=== PATIENT | male | born 1960 ===

== ENCOUNTER 2021-02-08 08:06 | Emergency (ER) | payer OTHER, SELFPAY ==
[2021-02-08 08:10] VITALS: BP 141/79; PULSE 60; RESP 18; TEMP 35.7; O2SAT 97; BMI 27.9
--- NOTE | 2021-02-08 08:54 | ED_ITS ---
HPI - General Adult General Chief complaint: General Medical Stated complaint: SOB Time Seen by Provider: 02/08/21 08:21 Source: patient Mode of arrival: ambulatory Limitations: no limitations History of Present Illness HPI narrative: 60-year-old male who presents emergency department for evaluation of shortness of breath. The patient states he has had intermittent shortness of breath over a year. He states that over the past 3-4 days and shortness of breath is gotten worse. He states that seems to be worse at night. He has a cough which is occasionally productive. He complains of tightness in his chest. He points to his mid sternum and states that the tightness is moderate intensity is worse with breathing worse with movement. He denied fever, chills, myalgias, arthralgias. He states that he had asthma as a child but this got better. He states he has been treated in the past with prednisone and albuterol inhaler when he has had the symptoms and this has helped. The patient received the [employer] 19 vaccination with the 2nd dose given in December 2020. Related Data Previous Rx's Medication Instructions Recorded albuterol sulfate 90 mcg/actuation 2 puff INHALATION Q4-6H PRN #8.5 g 02/08/21 aerosol inhaler prednisone 20 mg tablet 60 mg PO DAILY 5 Days #15 tab 02/08/21 Allergies Allergy/AdvReac Type Severity Reaction Status Date / Time No Known Allergies Allergy Unverified 03/17/20 15:38 Review of Systems Review of Systems: Yes all other systems are reviewed and are negative PMFSH Past Medical History [facility] Narrative: Social history: The patient denies tobacco use. The patient denies alcohol use. The patient states he does smoke marijuana frequently to help with his spinal stenosis pain. Medical History Arthritis Asthma Presence of other bone and tendon implants Spinal stenosis Surgical History Previous back surgery Social History Social History Advance Directives: No Advance Directives Information Provided: No Physical Exam Vital Signs: Vital Signs: Last Vital Signs Temp 96.3 F L 02/08/21 08:10 Pulse 60 02/08/21 08:10 Resp 18 02/08/21 08:10 BP 141/79 H 02/08/21 08:10 Pulse Ox 97 02/08/21 08:10 Body Mass Index 27.9 Const: General: cooperative and no acute distress Orientation/consciousness: oriented to person and oriented to place Limitations: no limitations HENMT: Head: Yes normal to inspection, Yes normocephalic and Yes atraumatic Ears: external ears normal General nose exam: Normal external nose present Face and sinus: Yes normal facial exam Mouth: Normal oral and palatal mucosa present Throat: Yes posterior oropharynx normal Eyes: General: appearance normal, both eyes and all related structures Pupils: Equal, round and reactive pupils present Neck: Neck: Yes normal visual inspection, Yes no lymphadenopathy, Yes trachea midline and Yes supple Chest: Chest palpation & inspection: normal inspection of the chest and normal palpation of entire chest wall Resp: Effort & Inspection: normal respiratory effort and able to speak in complete sentences Auscultation: wheezes scattered wheezes Cardio: Rate: regular rate Rhythm: regular rhythm Heart sounds: S1 normal heart sound present, S2 normal heart sound present and no murmurs GI: Inspection: Yes normal to inspection Palpation (GI): Soft to palpation, nontender and no guarding Auscultation: normal bowel sounds : General: Yes no CVA tenderness Back/Spine/Pelvis: Back: no CVA tenderness Skin: General skin exam: no rashes or lesions noted Neuro: General: oriented to person and oriented to place Cranial nerves: Yes CN's II-XII intact bilaterally and Yes Equal, round and reactive pupils present Cognition (Neuro): normal cognition Motor exam (neuro): 5/5 motor strength present throughout Extrem: General: Yes normal to inspection Psych: Appearance: grossly normal Speech and movement: Normal speech and movement present Affect: normal affect Attitude: cooperative Thought process: Normal thought process present Thought content: Normal thought content present Course Course Course Narrative: 60-year-old male who presents emergency department for evaluation of shortness of breath and a nonproductive cough. Vital signs revealed an elevated blood pressure of 141/79 and a low temperature of 96.3? F. Physical examination did reveal diffuse wheezing otherwise was unremarkable. The patient was started on prednisone 60 mg once a day for 5 days and albuterol inhaler 2 puffs every 4 hours as needed for shortness of breath and wheezing. The patient was discharged home. The patient was given verbal and printed instructions prior to discharge. The patient was advised to follow-up with his PCP in 2 days and to return to the emergency department if his symptoms get worse or if he develops any new symptoms that are concerning to him. Discharge Plan Discharge Clinical Impression: Asthma exacerbation Qualifiers: Asthma severity: moderate Patient Disposition: Home, Self-Care Instructions: Asthma (ED) Additional Instructions: Take prednisone 20 mg pills, 3 pills once a day for 5 days. While you are taking prednisone, do not take any NSAIDs (Motrin, Advil, ibuprofen, Aleve, naproxen). Use the albuterol inhaler 2 puffs every 4 hours as needed for shortness of breath. I want you to use this at least 4 times a day for the next 2-3 days to treat your wheezing then you can use as needed. Smoking marijuana may be contributing to your wheezing, you should consider changing to an edible marijuana product to help with your pain in appetite. Follow-up with your doctor in 2 days. Please return to the emergency department if your symptoms get worse or if you develop any symptoms that are concerning to you. Prescriptions: New albuterol sulfate 90 mcg/actuation HFA aerosol inhaler 2 puff inhalation Q4-6H PRN (Reason: shortness of breath or wheezing) Qty: 8.5 RF: 0 prednisone 20 mg tablet 60 mg PO DAILY 5 Days Qty: 15 RF: 0
== END 2021-02-08 09:26 | disposition home or self-care (01) ==
PROVIDERS: Emergency Provider Emergency Medicine Emergency Medical Services
DX: J45.901 Unspecified asthma with (acute) exacerbation (principal); F12.90 Cannabis use, unspecified, uncomplicated
CPT/HCPCS: 99283

== ENCOUNTER 2021-04-13 06:46 | Emergency (ER) | payer OTHER, SELFPAY ==
[2021-04-13 07:35] VITALS: BP 119/57; PULSE 61; TEMP 36.8; O2SAT 97
--- NOTE | 2021-04-13 07:41 | ECG_ITS ---
Test Reason : WEAKNESS Blood Pressure : / mmHG Vent. Rate : 064 BPM Atrial Rate : 064 BPM P-R Int : 190 ms QRS Dur : 076 ms QT Int : 398 ms P-R-T Axes : 041 -15 034 degrees QTc Int : 410 ms Sinus bradycardia with occasional Premature ventricular complexes Nonspecific ST abnormality Abnormal ECG No previous ECGs available Referred By: Maria Dolores Felton Electronically Signed By:NICOLA STONE MD
--- NOTE | 2021-04-13 07:42 | ED_ITS ---
HPI - General Adult General Chief complaint: General Medical Stated complaint: blood in urine Time Seen by Provider: 04/13/21 07:35 Source: patient Mode of arrival: ambulatory Limitations: no limitations History of Present Illness HPI narrative: Patient comes to the emergency room complaining of microscopic hematuria for 4 years. Patient states that he has had multiple cystoscopies. Patient has an appointment coming up in May of 2021. Patient states that he thinks he is anemic, states that he has been feeling very weak, lightheaded, denies chest pain or shortness of breath. Patient denies falling, but has had multiple episodes where he needs to sit down to avoid passing out. Related Data Home Medications Medication Instructions Recorded Confirmed atorvastatin 10 mg tablet 1 tab PO BEDTIME 04/13/21 04/13/21 gabapentin 300 mg capsule 1 cap PO TID 04/13/21 04/13/21 levocetirizine 5 mg tablet 1 tab PO DAILY PRN 04/13/21 04/13/21 lisinopril 10 mg tablet 1 tab PO DAILY 04/13/21 04/13/21 omeprazole 20 mg capsule,delayed 1 cap PO DAILY 04/13/21 04/13/21 release tamsulosin 0.4 mg capsule 1 cap PO DAILY 04/13/21 04/13/21 trazodone 50 mg tablet 100 mg PO BEDTIME 04/13/21 04/13/21 Previous Rx's Medication Instructions Recorded albuterol sulfate 90 mcg/actuation 2 puff INHALATION Q4-6H PRN #8.5 g 02/08/21 aerosol inhaler Allergies Allergy/AdvReac Type Severity Reaction Status Date / Time No Known Allergies Allergy Unverified 03/17/20 15:38 Review of Systems Review of Systems: Constitutional : No Weight loss, No Fever, No Chills, No Night Sweats, No Fatigue, No Malaise, complaining of generalized weakness ENT/Mouth : No Hearing loss, No Ear Pain, No Nasal Congestion, No Sinus Pain, No Hoarseness, No sore throat, No Rhinorrhea, No Swallowing Difficulty Eyes: No Eye Pain, No Swelling, No Redness, No Foreign Body, No Discharge, No Vision Changes Cardiovascular : No Chest Pain, No SOB, No Dyspnea on Exertion, No Orthopnea, No Edema, No Palpitations Respiratory : No Cough, No Sputum, No Wheezing, No Smoke Exposure, No Dyspnea Gastrointestinal : No Nausea, No Vomiting, No Diarrhea, No Constipation, No abdominal Pain, No Hematochezia, No Melena Genitourinary : No Dysuria, No Urinary Frequency, complaining of chronic painless microscopic Hematuria, No Urinary Incontinence, No Urgency, No Flank Pain, No Urinary Flow Changes, No Hesitancy Musculoskeletal : Complaining of chronic pain especially in hands No Myalgias, No Joint Swelling Skin : No Skin Lesions, No rash Neuro : No Weakness, No Numbness, No Paresthesias, No Loss of Consciousness, No Dizziness, No Headache Psych : No Anxiety/Panic, No Depression, No SI/HI/AH/VH, No Social Issues, Heme/Lymph: No Bruising, No Bleeding,No Lymphadenopathy Endocrine : No Polyuria, No Polydipsia, No Temperature Intolerance PMFSH Past Medical History Medical History Arthritis Asthma Presence of other bone and tendon implants Spinal stenosis Surgical History Previous back surgery Social History Social History Advance Directives: No Advance Directives Information Provided: Yes Physical Exam Vital Signs: Vital Signs: Last Vital Signs Temp 97.9 F 04/13/21 09:47 Pulse 66 04/13/21 09:47 Resp 16 04/13/21 09:47 BP 127/76 04/13/21 09:47 Pulse Ox 97 04/13/21 09:47 Body Mass Index 27.6 Const: Other: Appearance: Alert. Oriented X3. No acute distress. Eyes: Pupils equal, round and reactive to light. ENT: Pharynx normal. Neck: Normal inspection. Neck supple. No lymph nodes noted. No crepitus CVS: Normal heart rate and rhythm. Pulses normal. Normal S1 and S2 Respiratory: No respiratory distress. Breath sounds normal. No Wheezing. No ra les Abdomen: Soft and nontender. No rigidity. No distention. good BS x4 Skin: Skin warm and dry. Normal skin color. Normal skin turgor. Extremities: No lower extremity edema. No Lacerations. No Rash Neuro: Oriented X 3. No motor deficit. No sensory deficit. Moving all extermities. No slurred speech. Course Course Course Narrative: Despite having microscopic hematuria for several years, smith mansfield is not significantly anemic. Patient will follow-up as scheduled with his urologist, as mentioned above patient has a cystoscopy scheduled for May. Also, patient will benefit from the rheumatology consult for his chronic joint pain/arthritis Medical Decision Making Lab Data Result diagrams: 04/13/21 08:14 04/13/21 08:14 Labs: Lab Results 04/13/21 04/13/21 04/13/21 Range/Units 08:13 08:14 08:14 WBC 6.4 (4.8-10.8) X10*3/uL RBC 3.88 L (4.60-5.80) X10*6/uL Hgb 12.8 L (14.0-18.0) g/dl Hct 36.1 L (42-52) % MCV 93.0 (80-98) fL MCH 33.0 (27.0-33.0) pg MCHC 35.5 (31.0-36.0) g/dl RDW 13.0 (11.0-16.0) % Plt Count 203 (160-400) X10*3/uL MPV 10.1 (9.4-12.4) fL Immature Gran % (Auto) 0.2 (0.0-0.4) % Neut % (Auto) 54.4 (45-73) % Lymph % (Auto) 31.7 (20-40) % [place] % (Auto) 11.6 H (2-11) % Eos % (Auto) 1.6 (0-4) % Baso % (Auto) 0.5 (0-2) % Lymph # (Auto) 2.0 (1.2-4.9) X10*3/uL [place] # (Auto) 0.7 (0.1-1.2) X10*3/uL Eos # (Auto) 0.1 (0.0-0.4) X10*3/uL Baso # (Auto) 0.0 (0.0-0.2) X10*3/uL Abs Immat Gran (auto) 0.01 (0.00-0.03) X10*3/uL Absolute Neuts (auto) 3.5 (2.0-8.3) X10*3/uL Absolute Nucleated RBC 0.000 (0.0-0.012) X10*3/uL Nucleated RBC % (auto) 0.0 (0.0-0.2) /100WBC PT 11.3 (9.9-13.0) SEC INR 1.0 (0.9-1.1) Sodium (135-145) mmol/L Potassium (3.3-5.1) mmol/L Chloride (96-108) mmol/L Carbon Dioxide (22-29) mmol/L Anion Gap (12-20) BUN (9-16) mg/dL Creatinine (0.5-1.4) mg/dL Estim Creat Clear Calc Estimated GFR Random Glucose (60-115) mg/dL Calcium (8.4-10.2) mg/dL Total Bilirubin (0.0-1.0) mg/dL Direct Bilirubin (0.0-0.5) mg/dL AST (5-37) U/L ALT (0-40) U/L Alkaline Phosphatase (39-117) U/L Troponin I High Sens (<3.5-35.0) ng/L Total Protein (6.5-8.0) g/dL Albumin (3.5-5.0) g/dL Urine Color Urine Appearance Urine pH (5.0-8.0) Ur Specific [place] (1.005-1.025) Urine Protein (NEG-TRACE) MG/DL Urine Glucose (UA) (NEG) MG/DL Urine Ketones (NEG) MG/DL Urine Blood (NEG) Urine Nitrite (NEG) Ur Leukocyte Esterase (NEG) Urine RBC (0) /HPF Urine WBC (0-4) /HPF Ur Squamous Epith Cells /LPF Amorphous Sediment /LPF Urine Bacteria /LPF COVID-19 (DENIS) Negative (Negative) COVID-19 Clin Com See Note 04/13/21 04/13/21 04/13/21 Range/Units 08:14 08:14 08:42 WBC (4.8-10.8) X10*3/uL RBC (4.60-5.80) X10*6/uL Hgb (14.0-18.0) g/dl Hct (42-52) % MCV (80-98) fL MCH (27.0-33.0) pg MCHC (31.0-36.0) g/dl RDW (11.0-16.0) % Plt Count (160-400) X10*3/uL MPV (9.4-12.4) fL Immature Gran % (Auto) (0.0-0.4) % Neut % (Auto) (45-73) % Lymph % (Auto) (20-40) % [place] % (Auto) (2-11) % Eos % (Auto) (0-4) % Baso % (Auto) (0-2) % Lymph # (Auto) (1.2-4.9) X10*3/uL [place] # (Auto) (0.1-1.2) X10*3/uL Eos # (Auto) (0.0-0.4) X10*3/uL Baso # (Auto) (0.0-0.2) X10*3/uL Abs Immat Gran (auto) (0.00-0.03) X10*3/uL Absolute Neuts (auto) (2.0-8.3) X10*3/uL Absolute Nucleated RBC (0.0-0.012) X10*3/uL Nucleated RBC % (auto) (0.0-0.2) /100WBC PT (9.9-13.0) SEC INR (0.9-1.1) Sodium 138 (135-145) mmol/L Potassium 4.0 (3.3-5.1) mmol/L Chloride 109 H (96-108) mmol/L Carbon Dioxide 25 (22-29) mmol/L Anion Gap 8 L (12-20) BUN 13 (9-16) mg/dL Creatinine 0.79 (0.5-1.4) mg/dL Estim Creat Clear Calc TNP Estimated GFR > 60 Random Glucose 101 (60-115) mg/dL Calcium 9.2 (8.4-10.2) mg/dL Total Bilirubin 0.6 (0.0-1.0) mg/dL Direct Bilirubin 0.3 (0.0-0.5) mg/dL AST 13 (5-37) U/L ALT 12 (0-40) U/L Alkaline Phosphatase 67 (39-117) U/L Troponin I High Sens 6.0 (<3.5-35.0) ng/L Total Protein 6.6 (6.5-8.0) g/dL Albumin 4.1 (3.5-5.0) g/dL Urine Color YELLOW Urine Appearance CLEAR Urine pH 6.5 (5.0-8.0) Ur Specific [place] 1.020 (1.005-1.025) Urine Protein NEG (NEG-TRACE) MG/DL Urine Glucose (UA) NEG (NEG) MG/DL Urine Ketones NEG (NEG) MG/DL Urine Blood 1+ H (NEG) Urine Nitrite NEG (NEG) Ur Leukocyte Esterase NEG (NEG) Urine RBC 5-9 H (0) /HPF Urine WBC 1-4 (0-4) /HPF Ur Squamous Epith Cells TRACE /LPF Amorphous Sediment 1+ /LPF Urine Bacteria NONE /LPF COVID-19 (DENIS) (Negative) COVID-19 Clin Com ECG Data Attestation: I personally reviewed and interpreted this ECG as follows: (Eyelids 4, sinus rhythm, occasional PVCs, no ST segment depression or elevation, no T- wave inversions, QTC 410) Discharge Plan Discharge Clinical Impression: Hematuria, microscopic Patient Disposition: Home, Self-Care Instructions: Hematuria (ED) Additional Instructions: Please follow-up with your primary care physician tomorrow. If you have any worsening or new symptoms, please return to the emergency room or call 911 Prescriptions: No Action albuterol sulfate 90 mcg/actuation HFA aerosol inhaler 2 puff inhalation Q4-6H PRN (Reason: shortness of breath or wheezing) Qty: 8.5 RF: 0 trazodone 50 mg tablet 100 mg PO BEDTIME RF: 0 atorvastatin 10 mg tablet 1 tab PO BEDTIME RF: 0 tamsulosin 0.4 mg capsule 1 cap PO DAILY RF: 0 lisinopril 10 mg tablet 1 tab PO DAILY RF: 0 gabapentin 300 mg capsule 1 cap PO TID RF: 0 omeprazole 20 mg capsule,delayed release(DR/EC) 1 cap PO DAILY RF: 0 levocetirizine 5 mg tablet 1 tab PO DAILY PRN (Reason: Allergy Symptoms) RF: 0
--- NOTE | 2021-04-13 08:15 | PC.NURSE ---
Pt alert and oriented, pt reports weakness and lightheadedness. He states that he thinks he is anemic. he denies chest pain/sob. He reports having multiple episodes where he had to sit to avoid passing out, denies falling. Pt reports he has upcoming appointment in May for this issue. No apparent distress. Will continue to monitor.
[2021-04-13 08:19] LABS: MANUAL DIFF FLAG NO
[2021-04-13 08:21] LABS: Basophils Percent Auto 0.5 % (0-2); Eosinophils Absolute Auto 0.1 X10*3/uL (0.0-0.4); Eosinophils Percent Auto 1.6 % (0-4); Hematocrit 36.1 % (42-52); Hemoglobin 12.8 g/dl (14.0-18.0); Imm Gran Abs Auto 0.01 X10*3/uL (0.00-0.03); Imm Gran Pct Auto 0.2 % (0.0-0.4); Lymphocytes Percent Auto 31.7 % (20-40); Mean Corpuscular HGB Conc 35.5 g/dl (31.0-36.0); Mean Platelet Volume 10.1 fL (9.4-12.4); Monocytes Absolute Auto 0.7 X10*3/uL (0.1-1.2); Monocytes Percent Auto 11.6 % (2-11); Neutrophils Absolute Auto 3.5 X10*3/uL (2.0-8.3); Neutrophils Percent Auto 54.4 % (45-73); Platelet Count 203 X10*3/uL (160-400); Red Blood Count 3.88 X10*6/uL (4.60-5.80); White Blood Count 6.4 X10*3/uL (4.8-10.8)
[2021-04-13 08:27] LABS: Prothrombin Time 11.3 SEC (9.9-13.0)
--- NOTE | 2021-04-13 08:28 | PHA.MEDREC ---
Pharmacy Consult ? Medication Reconciliation Pharmacy has completed the medication reconciliation. There are no remarkable issues for provider's attention. Patient has no more albuterol, PCP was suppose to send more prescriptions. Maya Parada, OmaD
[2021-04-13 08:38] LABS: Alanine Aminotransferase 12 U/L (0-40); Albumin Level 4.1 g/dL (3.5-5.0); Alkaline Phosphatase 67 U/L (39-117); Anion Gap 8 (12-20); Aspartate Amino Transferase 13 U/L (5-37); Bilirubin Direct 0.3 mg/dL (0.0-0.5); Bilirubin Total 0.6 mg/dL (0.0-1.0); Blood Urea Nitrogen 13 mg/dL (9-16); Calcium 9.2 mg/dL (8.4-10.2); Carbon Dioxide 25 mmol/L (22-29); Chloride 109 mmol/L (96-108); Estimated Glomerular Filt Rate > 60; Glucose Random 101 mg/dL (60-115); Sodium 138 mmol/L (135-145); Total Protein 6.6 g/dL (6.5-8.0)
[2021-04-13 08:45] LABS: COVID-19 Test Negative (Negative)
[2021-04-13 08:50] LABS: Appearance Urine CLEAR; Color Urine YELLOW; Glucose Urine UA NEG (NEG); Leukocyte Esterase Urine NEG (NEG); Nitrite Urine NEG (NEG); PH 6.5 (5.0-8.0); UACC Culture Trigger NO; Urine Blood 1+ (NEG); Urine Ketones NEG (NEG); Urine Protein NEG (NEG-TRACE)
[2021-04-13 09:14] LABS: Amorphous Sediment Urine 1+ /LPF; Squamous Epithelial Cell Urine TRACE /LPF
[2021-04-13 09:47] VITALS: BP 127/76; PULSE 66; RESP 16; TEMP 36.6; O2SAT 97; BMI 27.6
--- NOTE | 2021-04-13 10:10 | PC.NURSE ---
PT MEDICALLY CLEARED FOR DISCHARGE. PT REPORTS PAIN IN HIS FINGERS, HE STATES THE PAIN IS CHRONIC DUE TO HIS ARTHRITIS. NO NEW PAIN REPORTED. DISCHARGE SUMMARY GIVEN AND EXPLAINED TO PT. NO OTHER COMPLAINTS VOICED.
[2021-04-13 10:11] VITALS: BP 150/78; PULSE 61; RESP 16; O2SAT 99
== END 2021-04-13 10:15 | disposition home or self-care (01) ==
PROVIDERS: Emergency Provider Emergency Medicine
DX: R31.29 Other microscopic hematuria (principal); J45.909 Unspecified asthma, uncomplicated; Z20.822 Contact with and (suspected) exposure to COVID-19
CPT/HCPCS: 36415; 80048; 80076; 81001; 84484; 85025; 85610; 87635; 93005; 99284

== ENCOUNTER 2021-05-22 12:27 | Outpatient (REF) | payer OTHER, SELFPAY ==
[2021-05-22 12:32] VITALS: BMI 27.9
[2021-05-22 12:33] VITALS: BP 148/74; PULSE 67; RESP 16; TEMP 37.3; O2SAT 99
[2021-05-22 13:27] VITALS: BP 130/80; PULSE 66; RESP 16; O2SAT 97
== END 2021-05-22 12:28 | disposition home or self-care (01) ==
LOC: HO.MS 12:27
PROVIDERS: Visit Provider Ophthalmology
PROC: (CPT 67840; principal; 2021-05-22 15:00)
DX: D23.122 Other benign neoplasm of skin of left lower eyelid, including canthus (principal); H54.8 Legal blindness, as defined in USA; H52.4 Presbyopia; I10 Essential (primary) hypertension; F41.9 Anxiety disorder, unspecified; Z79.899 Other long term (current) drug therapy
CPT/HCPCS: 67840; 88304; 88305

== ENCOUNTER 2022-03-17 08:53 | Emergency (ER) | payer OTHER, SELFPAY ==
--- NOTE | ~2022-03-17 | CT_ITS ---
EXAMINATION: CT ABDOMEN AND PELVIS WITH CONTRAST CLINICAL INFORMATION: Diffuse abdominal pain and weight loss. COMPARISON: CT abdomen/pelvis dated from 12/19/2014. TECHNIQUE: Multidetector volumetric images were obtained from the superior aspect of the liver through the pubic symphysis following administration 85 mL of Omnipaque 350 intravenous contrast. Sagittal and coronal reformatted images were obtained on the technologist's workstation. Oral contrast: No This CT examination was performed using dose optimization techniques as appropriate, variously including the following: *Automated exposure control *Adjustment of mA and/or kV according to patient size (this includes techniques or standardized protocols for targeted exams where dose is matched to indication/reason for exam; i.e. extremities or head) *Use of iterative reconstruction technique DLP: 425 mGy-cm FINDINGS: LUNG BASES: No focal consolidation or pleural effusion. LIVER, GALLBLADDER, AND BILIARY TREE: The liver is normal in size, shape, and attenuation. No focal hepatic lesion or biliary ductal dilatation is present. The gallbladder is unremarkable with no evidence of radiopaque gallstones, gallbladder wall thickening, or obvious pericholecystic inflammatory changes. PANCREAS: Unremarkable. SPLEEN: Unremarkable. ADRENAL GLANDS: Unremarkable. KIDNEYS AND URETERS: The kidneys are normal in size, shape, and attenuation. No hydronephrosis, hydroureter, or calculi seen. No perinephric stranding. BLADDER: Unremarkable. GASTROINTESTINAL TRACT: Small hiatal hernia. Diverticulosis. Equivocal wall thickening of the sigmoid colon in the setting of underdistention. No significant pericolic inflammatory changes. Normal appendix. No evidence of bowel obstruction. ABDOMINAL WALL: Small fat-containing inguinal hernias. LYMPH NODES: No lymphadenopathy by size criteria. VASCULAR: Aortoiliac atherosclerosis. The abdominal aorta is of normal diameter. PELVIC VISCERA: Prostatomegaly. Small amount of free fluid. OSSEOUS STRUCTURES: Degenerative changes of the spine. A few nonaggressive-appearing sclerotic osseous lesions in the spine and pelvis are in favored to represent bone islands. CT/CT abdomen pelvis w IV con IMPRESSION: Sigmoid diverticulosis with equivocal wall thickening in the setting of underdistention but with no significant pericolonic inflammatory changes. Recommend clinical correlation for mild acute diverticulitis and if not recently obtained, an elective colonoscopy is recommended. Small hiatal hernia. Small amount of free fluid in the pelvis, indeterminate. Enlarged prostate.
[2022-03-17 09:06] VITALS: BP 128/69; PULSE 50; RESP 18; TEMP 35.9; O2SAT 98; BMI 25.7
[2022-03-17 12:29] VITALS: BP 161/71; PULSE 53; RESP 14; TEMP 36.7; O2SAT 97
[2022-03-17 12:43] LABS: MANUAL DIFF FLAG NO
[2022-03-17 12:46] LABS: Appearance Urine Clear; Color Urine Yellow; Glucose Urine UA Negative (Negative); Leukocyte Esterase Urine Trace (Negative); Nitrite Urine Negative (Negative); PH 6.5 (5.0-9.0); Specific Gravity - Urine 1.025 (1.005-1.025); UMIC TRIGGER UACC YES; Urine Blood Negative (Negative); Urine Ketones Negative (Negative); Urine Protein Negative (Neg-Trace)
[2022-03-17 12:51] LABS: Bacteria Urine None Seen (None Seen); Hyaline Casts Urine 0-2 /LPF (0-2); Squamous Epithelial Cell Urine 0-2 /HPF (0-2); WBC Urine 0-5 /HPF (0-5)
[2022-03-17 12:58] LABS: Basophils Percent Auto 0.3 % (0-2); Eosinophils Absolute Auto 0.1 X10*3/uL (0.0-0.4); Eosinophils Percent Auto 0.9 % (0-4); Hematocrit 38.9 % (42.0-52.0); Hemoglobin 13.3 g/dl (14.0-18.0); Imm Gran Abs Auto 0.02 X10*3/uL (0.00-0.03); Imm Gran Pct Auto 0.3 % (0.0-0.4); Lymphocytes Absolute Auto 2.2 X10*3/uL (1.2-4.9); Lymphocytes Percent Auto 32.8 % (20-40); Mean Corpuscular HGB Conc 34.2 g/dl (31.0-36.0); Mean Corpuscular Volume 93.7 fL (80.0-98.0); Monocytes Absolute Auto 0.8 X10*3/uL (0.1-1.2); Monocytes Percent Auto 11.2 % (2-11); Neutrophils Absolute Auto 3.7 x10*3/uL (2.0-8.3); Neutrophils Percent Auto 54.5 % (45-73); Platelet Count 198 X10*3/uL (160-400); Red Blood Count 4.15 X10*6/uL (4.60-5.80); White Blood Count 6.8 X10*3/uL (4.8-10.8)
[2022-03-17 13:07] LABS: Alanine Aminotransferase 13 U/L (0-40); Albumin Level 4.3 g/dL (3.5-5.0); Alkaline Phosphatase 75 U/L (39-117); Anion Gap 15 (12-20); Aspartate Amino Transferase 12 U/L (5-37); Bilirubin Total 0.7 mg/dL (0.0-1.0); Blood Urea Nitrogen 11 mg/dL (9-16); Calcium 9.4 mg/dL (8.4-10.2); Carbon Dioxide 25 mmol/L (22-29); Chloride 105 mmol/L (96-108); Creatinine Clr Calc Pharmacy 80.1; Estimated Glomerular Filt Rate > 60; Glucose Random 99 mg/dL (60-115); Lipase 16 U/L (8-78); Sodium 141 mmol/L (135-145)
--- NOTE | 2022-03-17 13:33 | ED_ITS ---
HPI - Abdominal Pain General Chief Complaint: Abdominal Pain Stated Complaint: WEAK ABD PAIN ON AND OFF Time Seen by Provider: 03/17/22 10:10 Source: patient Mode of arrival: ambulatory Limitations: no limitations History of Present Illness HPI narrative: patient presents emergency department for evaluation of abdominal pain and weakness. He reports that his symptom onset was approximately 6 months ago. He has been experiencing diffuse abdominal pain, generalized weakness, decreased appetite, and an approximate 20 lb unintentional weight loss. He states that he 1st contacted his primary care doctor about 6 months ago and was given an appointment for March of this year. He states that the only difference in his symptoms today was that he had a bowel movement that was entirely black and he was feeling more weak which prompted him to come to the emergency department. He denies fevers, chills, night sweats, neck pain, pain shortness of breath, difficulty breathing, diarrhea, constipation, flank pain, dysuria, urinary frequency/ urgency / hesitancy, hematuria, numbness or tingling of his extremiti es. Related Data Home Medications Medication Instructions Recorded Confirmed atorvastatin 10 mg tablet 1 tab PO BEDTIME 04/13/21 04/13/21 gabapentin 300 mg capsule 1 cap PO TID 04/13/21 04/13/21 levocetirizine 5 mg tablet 1 tab PO DAILY PRN Allergy Symptoms 04/13/21 04/13/21 lisinopril 10 mg tablet 1 tab PO DAILY 04/13/21 04/13/21 omeprazole 20 mg capsule,delayed 1 cap PO DAILY 04/13/21 04/13/21 release tamsulosin 0.4 mg capsule 1 cap PO DAILY 04/13/21 04/13/21 trazodone 50 mg tablet 100 mg PO BEDTIME 04/13/21 04/13/21 Previous Rx's Medication Instructions Recorded albuterol sulfate 90 mcg/actuation 2 puff inhalation Q4-6H PRN 02/08/21 aerosol inhaler shortness of breath or wheezing #8.5 grams Allergies Allergy/AdvReac Type Severity Reaction Status Date / Time No Known Allergies Allergy Unverified 05/04/21 13:28 [facility] Past Medical History Medical History Arthritis Asthma Presence of other bone and tendon implants Spinal stenosis Surgical History Previous back surgery Social History Social History (System 05/04/21 @ 13:28 by Tami Morejon) Advance Directives: No Advance Directives Information Provided: Yes Physical Exam ED Vital Signs: Vital Signs - 24 hr 03/17/22 09:06 03/17/22 12:29 03/17/22 16:14 Temperature 96.7 F L 98.1 F 98.2 F Pulse Rate 50 53 61 Respiratory Rate 18 14 16 Blood Pressure 128/69 161/71 H 134/72 Pulse Oximetry 98 97 98 Oxygen Delivery Method Room Air Room Air Room Air BMI result Body Mass Index 25.7 Course Course Course Narrative: Patient is a 61-year-old male with a past medical history of hypertension and BPH presenting to emergency department for 6 months of abdominal pain and lack of appetite and reported unintentional weight loss. No additional worrisome symptoms such as fevers chills or night sweats. Will obtain CBC to evaluate for leukocytosis/ anemia, CMP and lipase to evaluate for abnormal electrolytes /abnormal renal function/ abnormal hepatic/biliary function, CT of the abdomen and pelvis, and Urinalysis. Reevaluation(s) Reevaluation #1: CBC reveals no leukocytosis, stable normocytic anemia with baseline. CMP in addition to lipase are all within normal limits. Urinalysis reveals trace leukocyte esterase without bacteria or nitrates, presence of urine rbc's consistent with prior urinalysis. Do not suspect urinary tract infection at this time. Occult stool is negative. CT reveals sigmoid diverticulosis with equivocal wall thickening but no significant inflammatory changes, recommend clinical correlation for mild acute diverticulitis. Patient without diarrhea, constipation, fevers, chills, nausea, vomiting food intolerance and leukocytosis do not suspect diverticulitis at this time. Reviewed these findings with patient. Recommended outpatient follow-up with primary care provider for further evaluation and treatment. Discussed worsening signs and symptoms to return back to emergency department for. All questions were answered, patient was discharged home in stable condition. MDM - Abdominal Pain Medical Records Attestation: I reviewed the patient's medical records. Lab Data Attestation: I reviewed the patient's lab results. Result diagrams: 03/17/22 12:36 03/17/22 12:36 Labs: Lab Results 03/17/22 03/17/22 03/17/22 Range/Units 12:36 12:36 12:36 WBC 6.8 (4.8-10.8) X10*3/uL RBC 4.15 L (4.60-5.80) X10*6/uL Hgb 13.3 L (14.0-18.0) g/dl Hct 38.9 L (42.0-52.0) % MCV 93.7 (80.0-98.0) fL MCH 32.0 (27.0-33.0) pg MCHC 34.2 (31.0-36.0) g/dl RDW 13.0 (11.0-16.0) % Plt Count 198 (160-400) X10*3/uL MPV 10.0 (9.4-12.4) fL Immature Gran % (Auto) 0.3 (0.0-0.4) % Neut % (Auto) 54.5 (45-73) % Lymph % (Auto) 32.8 (20-40) % [place] % (Auto) 11.2 H (2-11) % Eos % (Auto) 0.9 (0-4) % Baso % (Auto) 0.3 (0-2) % Lymph # (Auto) 2.2 (1.2-4.9) X10*3/uL [place] # (Auto) 0.8 (0.1-1.2) X10*3/uL Eos # (Auto) 0.1 (0.0-0.4) X10*3/uL Baso # (Auto) 0.0 (0.0-0.2) X10*3/uL Abs Immat Gran (auto) 0.02 (0.00-0.03) X10*3/uL Absolute Neuts (auto) 3.7 (2.0-8.3) x10*3/uL Absolute Nucleated RBC 0.000 (0.0-0.012) X10*3/uL Nucleated RBC % (auto) 0.0 (0.0-0.2) /100WBC Sodium 141 (135-145) mmol/L Potassium 4.0 (3.3-5.1) mmol/L Chloride 105 (96-108) mmol/L Carbon Dioxide 25 (22-29) mmol/L Anion Gap 15 (12-20) BUN 11 (9-16) mg/dL Creatinine 0.80 (0.5-1.4) mg/dL Estim Creat Clear Calc 80.1 Estimated GFR > 60 Random Glucose 99 (60-115) mg/dL Calcium 9.4 (8.4-10.2) mg/dL Total Bilirubin 0.7 (0.0-1.0) mg/dL AST 12 (5-37) U/L ALT 13 (0-40) U/L Alkaline Phosphatase 75 (39-117) U/L Total Protein 7.0 (6.5-8.0) g/dL Albumin 4.3 (3.5-5.0) g/dL Lipase 16 (8-78) U/L TSH 0.55 (0.32-4.0) uIU/mL Urine Color Yellow Urine Appearance Clear Urine pH 6.5 (5.0-9.0) Ur Specific [place] 1.025 (1.005-1.025) Urine Protein Negative (Neg-Trace) mg/dL Urine Glucose (UA) Negative (Negative) mg/dL Urine Ketones Negative (Negative) mg/dL Urine Blood Negative (Negative) Urine Nitrite Negative (Negative) Ur Leukocyte Esterase Trace H (Negative) Urine RBC 3-5 H (0-2) /HPF Urine WBC 0-5 (0-5) /HPF Ur Squamous Epith Cells 0-2 (0-2) /HPF Urine Bacteria None Seen (None Seen) Hyaline Casts 0-2 (0-2) /LPF Stool Occult Blood (NEGATIVE) 03/17/22 Range/Units 14:30 WBC (4.8-10.8) X10*3/uL RBC (4.60-5.80) X10*6/uL Hgb (14.0-18.0) g/dl Hct (42.0-52.0) % MCV (80.0-98.0) fL MCH (27.0-33.0) pg MCHC (31.0-36.0) g/dl RDW (11.0-16.0) % Plt Count (160-400) X10*3/uL MPV (9.4-12.4) fL Immature Gran % (Auto) (0.0-0.4) % Neut % (Auto) (45-73) % Lymph % (Auto) (20-40) % [place] % (Auto) (2-11) % Eos % (Auto) (0-4) % Baso % (Auto) (0-2) % Lymph # (Auto) (1.2-4.9) X10*3/uL [place] # (Auto) (0.1-1.2) X10*3/uL Eos # (Auto) (0.0-0.4) X10*3/uL Baso # (Auto) (0.0-0.2) X10*3/uL Abs Immat Gran (auto) (0.00-0.03) X10*3/uL Absolute Neuts (auto) (2.0-8.3) x10*3/uL Absolute Nucleated RBC (0.0-0.012) X10*3/uL Nucleated RBC % (auto) (0.0-0.2) /100WBC Sodium (135-145) mmol/L Potassium (3.3-5.1) mmol/L Chloride (96-108) mmol/L Carbon Dioxide (22-29) mmol/L Anion Gap (12-20) BUN (9-16) mg/dL Creatinine (0.5-1.4) mg/dL Estim Creat Clear Calc Estimated GFR Random Glucose (60-115) mg/dL Calcium (8.4-10.2) mg/dL Total Bilirubin (0.0-1.0) mg/dL AST (5-37) U/L ALT (0-40) U/L Alkaline Phosphatase (39-117) U/L Total Protein (6.5-8.0) g/dL Albumin (3.5-5.0) g/dL Lipase (8-78) U/L TSH (0.32-4.0) uIU/mL Urine Color Urine Appearance Urine pH (5.0-9.0) Ur Specific [place] (1.005-1.025) Urine Protein (Neg-Trace) mg/dL Urine Glucose (UA) (Negative) mg/dL Urine Ketones (Negative) mg/dL Urine Blood (Negative) Urine Nitrite (Negative) Ur Leukocyte Esterase (Negative) Urine RBC (0-2) /HPF Urine WBC (0-5) /HPF Ur Squamous Epith Cells (0-2) /HPF Urine Bacteria (None Seen) Hyaline Casts (0-2) /LPF Stool Occult Blood NEGATIVE (NEGATIVE) Imaging Data CT scan - abdomen: Radiologist's impression: CT/CT abdomen pelvis w IV con IMPRESSION: Sigmoid diverticulosis with equivocal wall thickening in the setting of underdistention but with no significant pericolonic inflammatory changes. Recommend clinical correlation for mild acute diverticulitis and if not recently obtained, an elective colonoscopy is recommended. ? Small hiatal hernia. ? Small amount of free fluid in the pelvis, indeterminate. ? Enlarged prostate. Discharge Plan Discharge Clinical Impression: Abdominal pain Patient Disposition: Home, Self-Care Instructions: Abdominal Pain (ED) Additional Instructions: as we discussed, your blood work today was all normal. The CT scan does not show an obvious cause for the symptoms you are reporting. You can take ibuprofen 200 mg, 3 tablets (600mg) every 6-8 hours as needed for pain, in addition to Tylenol 500 mg, 2 tablets (1,000mg) every 4-6 hours as needed for pain, but not to exceed 3 doses daily (3,000mg).? Please contact your primary care provider and arrange for a follow-up visit. You may return to emergency department with any new or worsening symptoms or co ncerns. Prescriptions: No Action albuterol sulfate 90 mcg/actuation HFA aerosol inhaler 2 puff inhalation Q4-6H PRN (Reason: shortness of breath or wheezing) Qty: 8.5 0RF trazodone 50 mg tablet 100 mg PO BEDTIME atorvastatin 10 mg tablet 1 tab PO BEDTIME tamsulosin 0.4 mg capsule 1 cap PO DAILY lisinopril 10 mg tablet 1 tab PO DAILY gabapentin 300 mg capsule 1 cap PO TID omeprazole 20 mg capsule,delayed release(DR/EC) 1 cap PO DAILY levocetirizine 5 mg tablet 1 tab PO DAILY PRN (Reason: Allergy Symptoms) Interventions: ED Discharge Assessment Last Done: 03/17/22 16:24 Discharge Date/Time: 03/17/22 16:24
[2022-03-17 14:38] LABS: OBS Int Ctl Valid YES; OBS1 NEGATIVE (NEGATIVE)
[2022-03-17] MEDS: iohexoL 350 MG/ML 100 ML INFUS..BTL IV (14:53)
[2022-03-17 16:14] VITALS: BP 134/72; PULSE 61; RESP 16; TEMP 36.8; O2SAT 98
[2022-03-17 17:02] LABS: TSH reflex Free T4 0.55 uIU/mL (0.32-4.0)
== END 2022-03-17 16:24 | disposition home or self-care (01) ==
PROVIDERS: Nurse Practitioner Family; Physician Assistant; Emergency Provider Internal Medicine
DX: R10.9 Unspecified abdominal pain (principal); Z79.02 Long term (current) use of antithrombotics/antiplatelets; Z79.899 Other long term (current) drug therapy
CPT/HCPCS: 36415; 74177; 80053; 81001; 82272; 83690; 84443; 85025; 99283; 99284; Q9967

== ENCOUNTER 2023-08-30 12:31 | Emergency (ER) | payer OTHER, SELFPAY ==
--- NOTE | 2023-08-30 12:38 | ED_ITS ---
HPI - General Adult General Chief complaint: General Medical Stated complaint: cold like symptoms Time Seen by Provider: 08/30/23 13:41 Source: patient Mode of arrival: ambulatory Limitations: no limitations History of Present Illness HPI narrative: Patient is an otherwise healthy, 63 yo male presenting with a 1 week history of ZHANG, congestion, weakness, and GI upset. Patient reports recent viral influenza and covid infections which resolved but the symptoms have returned. Patient denies SOB, CP, fevers and chills. Patient does not report any sick contacts, nor recent ABX use. MD complaint: Flu-like symptoms Onset (ago): week(s) Radiation: non-radiation Severity: mild Severity scale (1-10): 2 Relieving factors: none Exacerbating factors: none Associated symptoms: headaches and weakness Treatments prior to arrival: none Related Data Home Medications Medication Instructions Recorded Confirmed atorvastatin 10 mg tablet 1 tab PO BEDTIME 04/13/21 04/13/21 gabapentin 300 mg capsule 1 cap PO TID 04/13/21 04/13/21 levocetirizine 5 mg tablet 1 tab PO DAILY PRN Allergy Symptoms 04/13/21 04/13/21 lisinopril 10 mg tablet 1 tab PO DAILY 04/13/21 04/13/21 omeprazole 20 mg capsule,delayed 1 cap PO DAILY 04/13/21 04/13/21 release tamsulosin 0.4 mg capsule 1 cap PO DAILY 04/13/21 04/13/21 trazodone 50 mg tablet 100 mg PO BEDTIME 04/13/21 04/13/21 Previous Rx's Medication Instructions Recorded albuterol sulfate 90 mcg/actuation 2 puff inhalation Q4-6H PRN 02/08/21 aerosol inhaler shortness of breath or wheezing #8.5 grams Allergies Allergy/AdvReac Type Severity Reaction Status Date / Time No Known Allergies Allergy Verified 08/30/23 12:39 Review of Systems Constitutional: Constitutional: Reports no additional constitutional compl aints, Denies chills, Denies fever(s), Reports headache(s), Denies night sweats and Reports weakness Eyes: Eyes: Reports no additional eye complaints, Denies blurry vision, Denies change in vision, Denies diplopia, Denies eye discharge, Denies loss of vision and Denies eye pain ENT: Denies dizziness, Reports headache(s) and Reports nasal congestion Cardiovascular: Cardiovascular: Reports no additional cardiovascular complaints, Denies chest pain, Denies lightheadedness, Denies Loss of Consciousness and Denies dyspnea Respiratory: Respiratory: Reports no additional respiratory complaints and Denies dyspnea Gastrointestinal: Gastrointestinal: Denies abdominal pain, Denies melena, Denies hematochezia, Denies change in bowel habits, Denies change in stool character and Reports GI cramping Genitourinary: Genitourinary: Reports no additional male genitourinary complaints, Denies hematuria, Denies oliguria, Denies difficulty urinating, Denies dysuria, Denies urinary frequency, Denies urinary hesitancy, Denies urinary incontinence and Denies urinary urgency Musculoskeletal: Musculoskeletal: Reports no additional musculoskeletal complaints, Denies numbness and Denies tingling Neurologic: Denies dizziness, Reports headache(s), Denies loss of vision, Denies numbness, Denies tingling and Reports weakness Psychiatric: Psychiatric: Reports no additional psychiatric complaints Endocrine: Endocrine: Reports no additional endocrine complaints Hematologic/Lymphatic: Hematologic/Lymphatic: Reports no additional hematologic/lymphatic complaints Allergic/Immunologic: Allergic/Immunologic: Reports no additional allergic/immunologic complaints PMFSH Past Medical History Attestation statement: The following information was validated with the patient. Source: old records reviewed and nursing notes reviewed Medical History Presence of other bone and tendon implants Spinal stenosis Arthritis Asthma Surgical History Previous back surgery Social History Social History Advance Directives: No Advance Directives Information Provided: No Physical Exam ED Vital Signs: Vital Signs - 24 hr 08/30/23 12:39 Temperature 98.7 F Pulse Rate 66 Respiratory Rate 18 Blood Pressure 129/78 Pulse Oximetry 99 Oxygen Delivery Method Room Air BMI result Body Mass Index 25.8 Const General: cooperative, no acute distress, alert and awake Nutritional Appearance: well nourished Orientation/consciousness: patient oriented x3 Limitations: no limitations HENMT Head: Yes normal to inspection and Yes atraumatic Ears: hearing grossly normal bilaterally and external ears normal General nose exam: Normal external nose present, no nasal discharge noted and no epistaxis Face and sinus: Yes normal facial exam, No abrasion and No laceration Mouth: Normal oral and palatal mucosa present, no drooling and no muffled voice Eyes General: appearance normal, both eyes and all related structures Periorbital: periorbital findings normal Eyelids: Yes eyelids normal Conjunctivae: conjunctivae normal Pupils: Equal, round and reactive pupils present EOM: EOMs intact bilaterally Neck Neck: Yes normal visual inspection, Yes full ROM and Yes no lymphadenopathy Chest Chest palpation & inspection: normal inspection of the chest Resp Effort & Inspection: normal respiratory effort and able to speak in complete sentences Auscultation: clear to auscultation bilaterally Cardio Rate: regular rate Rhythm: regular rhythm GI Inspection: Yes normal to inspection Palpation (GI): Soft to palpation, not firm, nontender and no guarding Neuro General: patient oriented x3 and moves all extremities Cranial nerves: Yes Equal, round and reactive pupils present Cognition (Neuro): normal cognition Motor exam (neuro): 5/5 motor strength present throughout Sensory Exam: Normal double simultaneous stimulation for sensation Coordination: [id number] test normal Extrem General: Yes normal to inspection, Yes full ROM and Yes capillary refill normal Psych Appearance: grossly normal Mental Status: mental status grossly normal Affect: normal affect Attitude: cooperative Thought process: Normal thought process present Thought content: Normal thought content present Insight: Good insight present (Psych) Course Course Course Narrative: RME- 63 year old male presents for evaluation of flu like symptoms for the last week. He complains of headache, congestion, and weakness. Plan for viral swab Medical Decision Making Medical Decision Making [facility] Narrative: Patient is a 63 year old assigned male at with a history of HTN presenting to the emergency department today feeling generally unwell. Patient's physical exam was unremarkable. Patient's COVID-19, influenza, and RSV tests were negative. Patient's clinical presentation is most consistent with a viral illness. I explained my physical exam findings as well as all test results to the patient. I answered all questions asked by the patient. I stressed the importance of the patient taking his medication as prescribed. I stressed the importance of the patient following up with his primary care provider. I stressed the importance of the patient returning to the emergency department immediately if his symptoms were to worsen or if he were to develop any dizziness, shortness of breath, difficulty breathing, chest pain, blurry vision, loss of vision, nausea, vomiting, abdominal pain, fever, chills, back pain, or any other complaints. Patient verbalized agreement and understanding with this treatment plan and discharge. Differential Diagnosis Differential Diagnoses: The differential diagnosis associated with the presentation includes COVID-19 Influenza RSV URI Marimar lillness Admission/Observation Consideration of admission/observation: Escalation of care including admission/observation considered Patient would have been admitted to the hospital had his work up had any findings where hospital admission was appropriate and his clinical presentation warranted hospital admission. Lab Data [facility] Lab Attestation statement: I reviewed the patient's lab results. My interpretation of these results are in the [facility] Rationale portion of this note. Labs: Lab Results 08/30/23 Range/Units 12:42 Influenza Type A (PCR) NEGATIVE (Negative) Influenza Type B (PCR) NEGATIVE (Negative) RSV RNA Qual (PCR) NEGATIVE (Negative) SARS-CoV-2 RNA (RT-PCR) NEGATIVE (Negative) Tests considered The following testing was considered but not selected: Lab work like a CBC and CMP were considered however, the patient's current clinical presentation did not warrant this. I explained this to the patient who verbalized agreement and understanding. Discharge Plan Discharge Clinical Impression: Viral illness Patient Disposition: Home, Self-Care Instructions: Viral Syndrome (ED) Additional Instructions: Follow up with your primary care provider. Return to the emergency department immediately if your symptoms worsen or if you develop any dizziness, shortness of breath, difficulty breathing, chest pain, blurry vision, loss of vision, nausea, vomiting, abdominal pain, fever, chills, back pain, or any other complaints. Prescriptions: No Action albuterol sulfate 90 mcg/actuation HFA aerosol inhaler 2 puff inhalation Q4-6H PRN (Reason: shortness of breath or wheezing) Qty: 8.5 0RF trazodone 50 mg tablet 100 mg PO BEDTIME atorvastatin 10 mg tablet 1 tab PO BEDTIME tamsulosin 0.4 mg capsule 1 cap PO DAILY lisinopril 10 mg tablet 1 tab PO DAILY gabapentin 300 mg capsule 1 cap PO TID omeprazole 20 mg capsule,delayed release(DR/EC) 1 cap PO DAILY levocetirizine 5 mg tablet 1 tab PO DAILY PRN (Reason: Allergy Symptoms) Referrals: [facility] [place] Group] (Call to establish and follow up with a primary care provider. If you already have a primary care provider, please follow up with them.) [facility] [Provider Group] (Call to establish and follow up with a primary care provider. If you already have a primary care provider, please follow up with them.) [facility] [[facility] Group] (Call to establish and follow up with a primary care provider. If you already have a primary care provider, please follow up with them.) Interventions: ED Discharge Assessment Last Done: 08/30/23 14:36 Discharge Date/Time: 08/30/23 14:37 Print Language: Bengali
[2023-08-30 12:39] VITALS: BP 129/78; PULSE 66; RESP 18; TEMP 37.1; O2SAT 99; BMI 25.8
[2023-08-30 13:39] LABS: Influenza A PCR NEGATIVE (Negative); Influenza B PCR NEGATIVE (Negative); Resp Syncy Virus RNA Qual PCR NEGATIVE (Negative); SARS COV2 PCR INHOUSE NEGATIVE (Negative)
== END 2023-08-30 14:37 | disposition home or self-care (01) ==
PROVIDERS: Physician Assistant; Emergency Provider Emergency Medicine Emergency Medical Services
DX: B34.9 Viral infection, unspecified (principal); I10 Essential (primary) hypertension; Z11.52 Encounter for screening for COVID-19; Z20.828 Contact with and (suspected) exposure to other viral communicable diseases
CPT/HCPCS: 0241U; 99282; 99283

== ENCOUNTER 2024-01-30 15:00 | Outpatient (RCR) | payer OTHER, SELFPAY | END 2024-02-19 13:28 | disposition home or self-care (01) | LOC: HO.OT 15:00 | PROVIDERS: PCP Internal Medicine; Visit Provider Physician Assistant | DX: M54.2 Cervicalgia (principal); M79.601 Pain in right arm; M79.602 Pain in left arm | CPT/HCPCS: 97035; 97110; 97140; 97166 ==

== ENCOUNTER 2025-01-08 11:44 | Emergency (ER) | payer OTHER, SELFPAY ==
[2025-01-08 11:51] VITALS: BP 121/65; PULSE 66; RESP 16; TEMP 36.3; O2SAT 97; BMI 22.3
--- NOTE | 2025-01-08 11:53 | ED.GENADULT ---
HPI - General Adult General Chief complaint: Upper Respiratory Symptoms Stated complaint: Flu Symptoms Time Seen by Provider: 01/08/25 12:13 History of Present Illness ED Provider: Daniele SORTO narrative: The patient is a 64-year-old male who has felt unwell for about 3 days. He says symptoms began with some loose stools. He then developed a stuffy nose and a cough. He also developed a headache. He felt that his symptoms were somewhat similar to symptoms he had when he wants had COVID and he took a COVID home test which was negative. He continued coughing today in his encouraged him to come to the emergency room. He does not think he has had a fever. No chest pain. No abdominal pain, nausea, vomiting. He lives at home with his . His is not sick. Related Data Home Medications ?Medication ?Instructions ?Recorded ?Confirmed atorvastatin 10 mg tablet 1 tab PO BEDTIME 04/13/21 04/13/21 gabapentin 300 mg capsule 1 cap PO TID 04/13/21 04/13/21 levocetirizine 5 mg tablet 1 tab PO DAILY PRN Allergy Symptoms 04/13/21 04/13/21 lisinopril 10 mg tablet 1 tab PO DAILY 04/13/21 04/13/21 omeprazole 20 mg capsule,delayed 1 cap PO DAILY 04/13/21 04/13/21 release tamsulosin 0.4 mg capsule 1 cap PO DAILY 04/13/21 04/13/21 trazodone 50 mg tablet 100 mg PO BEDTIME 04/13/21 04/13/21 Previous Rx's ?Medication ?Instructions ?Recorded albuterol sulfate 90 mcg/actuation 2 puff inhalation Q4-6H PRN 02/08/21 aerosol inhaler shortness of breath or wheezing #8.5 grams Allergies Allergy/AdvReac Type Severity Reaction Status Date / Time No Known Allergies Allergy Verified 01/08/25 11:51 Review of Systems Review of Systems: Yes all other systems are reviewed and are negative [facility] Past Medical History Medical History Presence of other bone and tendon implants Spinal stenosis Arthritis Asthma Surgical History Previous back surgery Social History Social History Advance Directives: No Advance Directives Information Provided: Yes Do you have a plan to hurt others: No Plan Physical Exam ED Vital Signs: Vital Signs - 24 hr 01/08/25 11:51 01/08/25 12:00 01/08/25 13:09 Temperature 97.3 F 97.4 F 97.4 F Pulse Rate 66 60 60 Respiratory Rate 16 16 16 Blood Pressure 121/65 120/60 120/60 Pulse Oximetry 97 98 98 Oxygen Delivery Method Room Air Room Air Room Air BMI result Body Mass Index 22.3 Const Other: The patient is a 64-year-old man. He is quite slim. He is awake and alert. He does not appear in overt distress. He is very pleasant. Orientation/consciousness: patient oriented x3 HENMT Other: Face is symmetrical. Posterior pharynx is unremarkable. No erythema or exudate. No swelling. No asymmetry. Tongue is midline. Eyes General: appearance normal, both eyes and all related structures Neck Neck: Yes normal visual inspection, Yes full ROM and Yes no lymphadenopathy Resp Effort & Inspection: normal respiratory effort Auscultation: clear to auscultation bilaterally GI Other: Abdomen is soft and nontender Skin General skin exam: no rashes or lesions noted Neuro General: patient oriented x3, gait normal, tone normal, moves all extremities, no focal motor deficits and CN's II-XI intact bilaterally Extrem Other: There is no calf swelling or tenderness. No asymmetry. No peripheral edema. Course Course Course Narrative: RME, this is a rapid medical exam performed by Jermaine De Luna please refer to primary provider for complete H&P- 64-year-old male presents for evaluation congestion and a dry cough with headaches. He feels similar to when he had COVID-19 last year. He did take a home COVID test that was negative. Plan for repeat swabs. He is well-appearing Medical Decision Making Medical Decision Making MDM Narrative: The patient is a 64-year-old male who has been sick for 3 days with respiratory symptoms. Clinically the patient looks entirely well in his vital signs are unremarkable. He was worried that he might have COVID. He had a negative COVID test at home but came here to confirm it. His COVID test here is negative. His rapid strep is negative. He is also negative for influenza and RSV. Clinically the question looks very well. He was offered additional testing with a possible chest x-ray, EKG, and lab testing. He said he really did not want to have additional testing. He just wanted to make sure he did not have COVID. He looks well enough that I think he may be discharged. Lab Data Labs: Lab Results 01/08/25 Range/Units 12:02 Influenza Type A (PCR) NEGATIVE (Negative) Influenza Type B (PCR) NEGATIVE (Negative) RSV RNA Qual (PCR) NEGATIVE (Negative) SARS-CoV-2 RNA (RT-PCR) NEGATIVE (Negative) S. pyogenes GrpA CAROLYN Negative (Negative) Discharge Plan Discharge Clinical Impression: Viral respiratory infection Patient Disposition: Home, Self-Care Additional Instructions: You have tested negative for COVID, influenza, RSV, and strep throat. We spoke about possibly doing extra testing but at this point you seem reasonably well and we will hold off on any extra testing of the moment. I think that you probably have a cold. Please continue fluids like rhianna jewel and other similar things. Please stay in touch with your regular doctor for additional advice as needed. Return to the emergency room if you feel significantly worse, especially if you develop a fever or chest pain or any other worrisome symptoms. Prescriptions: No Action albuterol sulfate 90 mcg/actuation HFA aerosol inhaler 2 puff inhalation Q4-6H PRN (Reason: shortness of breath or wheezing) Qty: 8.5 0RF trazodone 50 mg tablet 100 mg PO BEDTIME atorvastatin 10 mg tablet 1 tab PO BEDTIME tamsulosin 0.4 mg capsule 1 cap PO DAILY lisinopril 10 mg tablet 1 tab PO DAILY gabapentin 300 mg capsule 1 cap PO TID omeprazole 20 mg capsule,delayed release(DR/EC) 1 cap PO DAILY levocetirizine 5 mg tablet 1 tab PO DAILY PRN (Reason: Allergy Symptoms) Referrals: Karen Rivera MD [Primary Care Provider, Internal Medicine] Interventions: ED Discharge Assessment Last Done: 01/08/25 13:09 Discharge Date/Time: 01/08/25 13:16 Print Language: [place]
[2025-01-08 12:00] VITALS: BP 120/60; PULSE 60; RESP 16; TEMP 36.3; O2SAT 98
[2025-01-08 12:18] LABS: IDNOW Serial# 58CA691E; Strep A Nucleic Acid Negative (Negative)
--- OUTSIDE RECORDS SUMMARY | 2025-01-08 12:30 | XMS_ITS | Encounter Summary ---
Author Organization [facility] Address [address] [place] [address] Care Team Providers Care Coil Shaper Name Role Phone Karen Rivera MD Primary Care Provider [phone] Encounter Details Date Type Department Care Team (Late Contact Info) Description 11/25/2024 Lab Requisition [facility] - Main Lab [address] [facility] [place] [address] Luis Do MD [address] [place] [phone] Elevated prostate specific antigen (PSA) Social History Tobacco Use Types Packs/Day Years Used Date Smoking Tobacco: Never Smokeless Tobacco: Never Alcohol Use Standard Drinks/Week Comments No 0 (1 standard drink = 0.6 oz pur e alcohol) Sex and Gender Information Value Date Recorded Sex Assigned at Not on file Legal Sex Male 2:16 AM EST Gender Identity Not on file Sexual Orientation Not on file documented as of this encounter Plan of Treatment Upcoming Encounters Date Type Department Care Team (Late st Contact Info) Description 04/23/2025 1:00 PM EDT Office Visit Adult Medicine [facility] [address] [place] [phone] Velia Orozco PA [address] [place], [place] documented as of this encounter Procedures Procedure Name Priority Date/Time Associated Diagnosis Comments AP OUTSIDE CONSULT Routine 11/24/2024 Elevated prostate specific antigen (PSA) documented in this encounter Results * Anatomic pathology outside consult (11/24/2024) Final Diagnosis A. Prostate, Left Middle [place] Biopsy: - Benign prostatic tissue. B. Prostate, Left Lateral [place] Biopsy: - Benign prostatic tissue. C. Prostate, Left Middle Middle Biopsy: - Atypical small acinar proliferation (ERNESTINE), suspicious for adenocarcinoma. D. Prostate, Left Lateral Middle Biopsy: - Benign prostatic tissue. E. Prostate, Left Middle Base Biopsy: - Benign prostatic tissue. F. Prostate, Left Lateral Base Biopsy: - High grade prostatic intraepithelial neoplasia (HGPIN). G. Prostate, Right Middle [place] Biopsy: - Prostatic acinar adenocarcinoma (conventional type), grade group 1 (Hiram score 3+3=6). - Tumor continuously involves 5% of 1 of 1 tissue core. H. Prostate, Right Lateral [place] Biopsy: - Prostatic acinar adenocarcinoma (conventional type), grade group 1 (Dover score 3+3=6). - Tumor continuously involves 4% of 1 of 1 tissue core. I. Prostate, Right Middle Middle Biopsy: - Prostatic acinar adenocarcinoma (conventional type), grade group 1 (Dover score 3+3=6). - Tumor continuously involves 25% of 1 of 1 tissue core. J. Prostate, Right Lateral Middle Biopsy: - Prostatic acinar adenocarcinoma (conventional type), grade group 2 (Hiram score 3+4=7). - Percentage pattern 4: 10%. - Tumor continuously involves 55% of 1 of 1 tissue core. K. Prostate, Right Middle Base Biopsy: - Prostatic acinar adenocarcinoma (conventional type), grade group 2 (Hiram score 3+4=7). - Percentage pattern 4: <5%. - Tumor continuously involves 70% of 1 of 1 tissue core. L. Prostate, Right Lateral Base Biopsy: - Prostatic acinar adenocarcinoma (conventional type), grade group 2 (Hiram score 3+4=7). - Percentage pattern 4: 5%. - Tumor continuously involves 88% of 1 of 1 tissue core. 11/27/2024 10:47 AM [facility] Clinical Information Elevated PSA R97.20 PSA: 4.7 (09/17/24) [id number] 11/27/2024 10:47 AM [facility] Gross Description A. Prostate, Left Middle [place] Biopsy: Received, properly labeled, are two H and E stained slides and two unstained slides. B. Prostate, Left Lateral [place] Biopsy: Received, properly labeled, are two H and E stained slides and two unstained slides. C. Prostate, Left Middle Middle Biopsy: Received, properly labeled, are two H and E stained slides and two unstained slides. D. Prostate, Left Lateral Middle Biopsy: Received, properly labeled, are two H and E stained slides and two unstained slides. E. Prostate, Left Middle Base Biopsy: Received, properly labeled, are two H and E stained slides and two unstained slides. F. Prostate, Left Lateral Base Biopsy: Received, properly labeled, are two H and E stained slides and two unstained slides. G. Prostate, Right Middle [place] Biopsy: Received, properly labeled, are two H and E stained slides and two unstained slides. H. Prostate, Right Lateral [place] Biopsy: Received, properly labeled, are two H and E stained slides and two unstained slides. I. Prostate, Right Middle Middle Biopsy: Received, properly labeled, are two H and E stained slides and two unstained slides. J. Prostate, Right Lateral Middle Biopsy: Received, properly labeled, are two H and E stained slides and two unstained slides. K. Prostate, Right Middle Base Biopsy: Received, properly labeled, are two H and E stained slides and two unstained slides. L. Prostate, Right Lateral Base Biopsy: Received, properly labeled, are two H and E stained slides and two unstained slides. /al 11/27/2024 10:47 AM [facility] Disclaimer Unless otherwise specified, all tissue is 10% NB formalin fixed and paraffin embedded. Technical pathology services provided by [facility] at [address], [place] [address] (CLIA #[id number]/Irene Coelho MD, Cryptological Technician) 11/27/2024 10:47 AM [facility] Tissue Prostate / Unknown 11/24/20242024 9:05 AM EDT Tissue specimen (specimen) Prostate / Unknown 11/24/2024 11/25/2024 9: 07 AM EDT Tissue specimen (specimen) Prostate / Unknown 11/24/2024 11/25/2024 9: 07 AM EDT Tissue specimen (specimen) Prostate / Unknown 11/24/2024 11/25/2024 9: 07 AM EDT Tissue specimen (specimen) Prostate / Unknown 11/24/2024 11/25/2024 9: 07 AM EDT Tissue specimen (specimen) Prostate / Unknown 11/24/2024 11/25/2024 9: 07 AM EDT Tissue specimen (specimen) Prostate / Unknown 11/24/2024 11/25/2024 9: 07 AM EDT Tissue specimen (specimen) Prostate / Unknown 11/24/2024 11/25/2024 9: 07 AM EDT Tissue specimen (specimen) Prostate / Unknown 11/24/2024 11/25/2024 9: 07 AM EDT Tissue specimen (specimen) Prostate / Unknown 11/24/2024 11/25/2024 9: 07 AM EDT Tissue specimen (specimen) Prostate / Unknown 11/24/2024 11/25/2024 9: 07 AM EDT Tissue specimen (specimen) Prostate / Unknown 11/24/2024 11/25/2024 9: 07 AM EDT us Luis Do MD LAB PATHOLOGY ORDERABLES Final Result Performing Organization Address City/State/[facility] Co de Phone Number [facility] [address] [place] [address], documented in this encounter Visit Diagnoses Diagnosis Elevated prostate specific antigen (PSA) documented in this encounter Additional Health Concerns Assessment Noted Time PHQ-9 Depression Total Score: 25 024 3:24 PM EST A fall risk assessment has been complete d for the patient 06/18/2024 3:19 PM EST documented as of this encounter Care Teams Coil Shaper Relationship Specialty Start Date End Date Karen Rivera MD [address] [place] [address] PCP - General Internal Medicine 07/10/21 documented as of this encounter
--- OUTSIDE RECORDS SUMMARY | 2025-01-08 12:30 | XMS_ITS | Clinical Summary ---
Author Organization [employer] Address [address] [place] [address] Care Team Providers Care Gas Operations Superintendent Name Role Phone Unavailable Primary Care Provider Unavailabl e Immunizations Immunization Administration Dates Next Due Influenza Injectable Quadriv alant Preservative Free IIV4 MDCK 04/06/2022 Influenza injectable quadrivalent preservative f ree 03/31/2021,03/23/2020 Influenza, seasonal, injectable, preservative fr ee 03/26/2024 Pfizer Covid-19 Vaccine 12+ 03/26/2024 Tdap 12/25/2023,11/24/2013 Social History Tobacco Use Types Packs/Day Years Used Date Smoking Tobacco: Never Assessed Sex and Gender Information Value Date Recorded Sex Assigned at Male 04/30/2022 10:14 AM EDT Legal Sex Male 10:14 AM EDT Gender Identity Male 04/30/2022 10:14 AM EDT Sexual Orientation Straight 04/30/2022 10 :14 AM EDT Plan of Treatment Health Maintenance Due Date Last Done Comments CT Colonography 1959 Colonoscopy 1959 Colorectal Cancer Screening 1959 Depression Screening 1959 FIT DNA/Cologuard 1959 FIT 1959 FOBT 1959 Lipid Panel 1959 SDOH Screening 1959 Sigmoidoscopy 1959 Alcohol/Substance Use Screening 1971 Tobacco Screening 1971 Hepatitis C Screening 1977 Pneumococcal Vaccine: 50+ Years (1 of 1 - PCV) 2009 Zoster Vaccines (1 of 2) 2009 COVID-19 Vaccine ( - season) 2024 03/26/2024, 07/24/2021, 01/17/2021, Additional history exists Influenza Vaccine (#1) 2025 4, 04/06/2022, 03/31/2021, Additional history exists DTaP/Tdap/Td Vaccines (3 - Td or Tdap) 12/24/2033 12/25/2023, 11/24/2013 RSV Patients and Patients Aged 60 years or older (1 - 1-dose 75+ series) 2034 HIB Vaccines Aged Out No longer eligi ble based on patient's age to complete this topic HPV Vaccines Aged Out No longer eligi ble based on patient's age to complete this topic Hepatitis A Vaccines Aged Out No long er eligible based on patient's age to complete this topic Hepatitis B Vaccines Aged Out No long er eligible based on patient's age to complete this topic IPV Vaccines Aged Out No longer eligi ble based on patient's age to complete this topic Meningococcal B Vaccine Aged Out No l onger eligible based on patient's age to complete this topic Meningococcal Vaccine Aged Out No cisco denys eligible based on patient's age to complete this topic RSV under 20 months Aged Out No longe r eligible based on patient's age to complete this topic Rotavirus Vaccines Aged Out No longer eligible based on patient's age to complete this topic Insurance [facility] < 65 [place] [id number]
--- OUTSIDE RECORDS SUMMARY | 2025-01-08 12:30 | XMS_ITS | Patient Health Record ---
Author Organization [facility] Address [address] [place] [address] Care Team Providers Care Fish Warden Name Role Phone Carrie MUKHERJEE, [facility] Primary Care Provider Donald Cuevas Jr Unavailable Reason For Referral No Information Medications Medication SIG (Take, Route, Frequency, Duration) Notes Start Date End Date Status MiraLax (colon prep) 8.3 ounce ((238) grams mixed with Gatorade or Crystal Light orally begin at 5:00 p.m. the day before the procedure for 1 day 06/11/2019 Active SEROquel 200 MG 1 tablet at bedtime Orally Once a day for 30 day(s) Active Atorvastatin Calcium Active Flomax Active Omeprazole Active Lisinopril Active Immunizations Vaccine Route Administration Date Status Comme nts Influenza Unknown 06/11/2019 Refused Social History Tobacco Use: Social History Observation Description Date Details (start date - stop date) Never Smoker NA - NA Tobacco Use/Smoking Question Answer Notes Patient is a nonsmoker Alcohol Screen Question Answer Notes Did you have a drink containing alcohol in the p ast year? No Points 0 Interpretation Negative Plan Of Treatment Future Test Test Name Order Date COLONOSCOPY 06/11/2019 Insurance Providers Payer Name Payer Address Payer Phone Subscriber Number Group Number Insured Name Patient Relationship to Insured Coverage Start Date Coverage End Date [facility] [address] [place] [address] [id number] JANNA HANSON Self - patient is the insured Medical (General) History Medical History History ICD Code hypertension depression anxiety elevated Cholesterol gastroesophageal reflux disease large prostate Surgical History Surgery Date(Month/Year) back surgery lumbar 2010 bone inplant back of neck 2011
[2025-01-08 12:51] LABS: Resp Syncy Virus RNA Qual PCR NEGATIVE (Negative); SARS COV2 PCR INHOUSE NEGATIVE (Negative)
[2025-01-08 13:09] VITALS: BP 120/60; PULSE 60; RESP 16; TEMP 36.3; O2SAT 98
== END 2025-01-08 13:16 | disposition home or self-care (01) ==
PROVIDERS: Physician Assistant; Emergency Provider Emergency Medicine; PCP Internal Medicine
DX: J06.9 Acute upper respiratory infection, unspecified (principal); R19.7 Diarrhea, unspecified; R09.81 Nasal congestion; R05.9 Cough, unspecified; R51.9 Headache, unspecified; J45.909 Unspecified asthma, uncomplicated; Z79.899 Other long term (current) drug therapy; Z03.818 Encounter for observation for suspected exposure to other biological agents ruled out
CPT/HCPCS: 87637; 87651; 99283